=== PATIENT | female | born 1990 | race Caucasian/White ===

== ENCOUNTER → 2019-03-28 | Outpatient (CLI) | payer OTHER ==
[2019-03-28] VITALS (8 sets, daily range): BP systolic 130–148; BP diastolic 18–98
[~2019-03-28] VITALS: Ht 167.6 cm; Wt 124.7 kg
[~2019-03-28] MED LIST: PROZAC20 MG
--- NOTE | 2019-04-04 17:07 | PATH ---
[address] [address] PATHOLOGY RPT PROCEDURE Name: NICOLASA MCNAIR [id number] Admission: 03/28/19 Date of : 88 Discharge: Report #: [id number] Path Case #: [id number] [facility] Accession Number: [id number] . 01 Material submitted: . liver - LIVER . 01 Clinical history: . Elevated LFTs and ferritin . 02 Diagnosis: Liver biopsy: - Benign liver with mild lobular and portal inflammation, minimal (approximately 5%) macrovesicular steatosis and minimal/focal perisinusoidal fibrosis. See comment. . (HANG:justa; 03/29/2019) QMS/03/29/2019 . 02 Comment: The tissue cores show benign liver with mild lobular and portal inflammation composed predominantly of lymphocytes and rare neutrophils, without significant numbers of plasma cells, eosinophils or granulomas seen. Bile stasis is not apparent. Bile ducts are present and do not appear damaged. Properly controlled special stains performed on A1 show the following results: . Iron: No increase of stainable iron. Trichrome: Minimal/focal perisinusoidal fibrosis. Reticulin: Hepatic plates/framework intact. PAS with and without diastase: No PAS positive diastase resistant globules. . This case will be submitted to the [facility] Department of Hepatopathology in consultation and an addendum report will be issued. (HANG:justa; 03/29/2019) . 02 Addendum: . Special studies report received from [place] [address] [place] [address], on case [id number], labeled with their number [id number], dated 04/04/2019. . [facility] Pathology Consultation . Pathology Consult [place] [address] PATHOLOGY RPT PROCEDURE Name: NICOLASA MCNAIR Room: [facility]#: [id number] Admission: 03/28/19 Date of : 88 Discharge: Report #: [id number] Path Case #: [id number] . FINAL DIAGNOSIS Liver, needle biopsy ([id number]; 03/28/2019): Mild nonspecific reactive hepatitis with mild macrovesicular steatosis. (See comment.) . COMMENT This needle biopsy is adequate for assessment. The portal tracts show mild nonspecific inflammation predominantly composed of small lymphocytes. The interlobular bile ducts appear intact. The hepatic lobules show mild (15%) macrovesicular steatosis without unequivocal ballooning hepatocytes or [place] hyaline. There is mild lobular inflammation with occasional acidophil bodies. Special stains were provided. Iron stain is negative for iron deposition. Reticulin stain shows intact reticulin meshwork. PAS-D stain is negative for intracytoplasmic hyaline globules. Trichrome stain shows no significant fibrosis. . The patient is a 28-year-old woman with chronic elevation of liver enzymes. On 03/08/2019, the liver function test showed AST 147, ALT 256, and GGT 59. BARBARA and SMA were negative. Celiac panel was negative. Ferritin was elevated at 407. Serum yrgof-6-ceiexyvzpyv and ceruloplasmin were within normal limit. Serologies for HAV, HBV and HCV were negative. . In summary, the findings are mild and nonspecific. There is mild macrovesicular steatosis but no active steatohepatitis. There are no features that strongly suggest untreated autoimmune hepatitis or chronic biliary tract disease. The differential diagnosis includes adverse drug reaction, acute viral infection, or secondary to a systemic disease. Clinical correlation is necessary. . Thank you for the opportunity to be involved in this case. Your material is being returned. Please let us know of any pertinent follow-up. If you have any questions, please do not hesitate to reach me at [phone]. . Participated in the Interpretation Bakari Montiel M.D., Ph.D.-Pathology Fellow . . Report electronically signed by Ronnie Leggett M.D. [phone] I verify that I have examined all relevant slides/materials for the specimen(s) and rendered or confirmed the diagnosis. . A comprehensive review of records that included clinical notes and laboratory results was performed to assist in the diagnostic assessment of the case. . . [place] [address] PATHOLOGY RPT PROCEDURE Name: NICOLASA MCNAIR Room: [facility]#: [id number] Admission: 03/28/19 Date of : 88 Discharge: Report #: [id number] Path Case #: [id number] A. [id number]: Liver 8 stained slides . A complete copy of the report is on file. . Professional services performed by [address] [address]. Technical services performed by [facility] [place] [address], [address], [place] [address]. . (AMJ 04/04/2019) . AZJ/04/04/2019 Addendum Electronically Signed by Aj Young MD, Pathologist . 02 Electronically signed: . Aj Young MD, Pathologist NPI- [id number] . 01 Gross description: . The specimen is received in formalin, labeled "Nicolasa Mcnair liver BX", are two springer soft needle cores measuring 1.9 cm and 1.7 cm in length with an average 0.1 cm diameter. The specimen is entirely submitted in A1. (SWS; 03/28/2019) . . SHS/SHS . 02 Pathologist provided ICD-10: K74.0, K76.0 . 02 CPT . 307073 Specimen Comment: A courtesy copy of this report has been sent to Specimen Comment: [phone], , , . Specimen Comment: Report sent to ,DR LEUNG,DR DIEZ / DR VERDUZCO Specimen Comment: A duplicate report has been generated due to demographic updates. Performed at: [address], [place], [place] [id number] MD Jose Roberto Chapman MD Phone: [phone] Performed at: [address] [facility] [address], [place], [place] [id number] MD Aj Young MD Phone: [phone]
== END ==
LOC: M.LAB 07:00 → M.ULTRA 08:30
DX: K74.0 Hepatic fibrosis (principal); K76.0 Fatty (change of) liver, not elsewhere classified; K75.89 Other specified inflammatory liver diseases; Z90.49 Acquired absence of other specified parts of digestive tract; Z87.891 Personal history of nicotine dependence

== ENCOUNTER 2020-05-05 08:01 | Emergency (ER) | payer OTHER ==
[~2020-05-05] VITALS: Ht 170.2 cm; Wt 108.9 kg
[2020-05-05] MEDS ORDERED: MOBIC7.5 MG PO (08:14)
[2020-05-05] MEDS ORDERED: FAMCICLOVIR250 MG PO (08:15)
[2020-05-05 08:32] LABS: ABSOLUTE EOSINOPHILS 0.1 thou/uL (0.0-0.7); ABSOLUTE LYMPHOCYTES 1.7 thou/uL (0.8-5.3); ABSOLUTE MONOCYTES 0.5 thou/uL (0.0-1.2); ABSOLUTE NEUTROPHILS 4.8 thou/uL (1.6-8.1); BASOPHILS 0.6 %; EOSINOPHILS 0.7 %; HEMATOCRIT 43.2 % (37.0-47.0); HEMOGLOBIN 14.8 gm/dL (12.0-15.0); LYMPHOCYTES 24.3 %; MCH 29.7 pg (26.0-34.0); MCHC 34.2 g/dL (28.0-37.0); MCV 86.8 fL (80.0-100.0); MONOCYTES 6.6 %; MPV 8.1 fl. (7.2-11.1); NUCLEATED RBCS 0 /100WBC; PLATELET COUNT* 232 thou/uL (150-400); POLYS 67.8 %; RBC 4.97 mil/uL (4.20-5.00); RDW-CV 12.9 % (10.5-14.5); WBC 7.1 thou/uL (4.0-11.0)
[2020-05-05 08:44] LABS: APTT 26.5 Seconds (25.0-31.3); PROTIME 10.3 Seconds (9.20-11.50)
[2020-05-05 09:00] VITALS: BP 125/85
== END 2020-05-05 09:00 | disposition home or self-care (01) ==
LOC: M.ERS 08:01
PROVIDERS: Emergency Medicine Emergency Medical Services
DX: H11.31 Conjunctival hemorrhage, right eye (principal); Z90.49 Acquired absence of other specified parts of digestive tract

== ENCOUNTER 2020-05-30 13:44 | Emergency (ER) | payer OTHER ==
[~2020-05-30] VITALS: Ht 170.2 cm; Wt 122.5 kg
[~2020-05-30 13:44] MED LIST changes: +FAMCICLOVIR250 MG PO; +MOBIC7.5 MG PO
[2020-05-30 14:27] LABS: ABSOLUTE LYMPHOCYTES 2.2 thou/uL (0.8-5.3); ABSOLUTE MONOCYTES 0.4 thou/uL (0.0-1.2); ABSOLUTE NEUTROPHILS 5.8 thou/uL (1.6-8.1); BASOPHILS 0.5 %; EOSINOPHILS 0.4 %; HEMATOCRIT 44.9 % (37.0-47.0); HEMOGLOBIN 15.7 gm/dL (12.0-15.0); LYMPHOCYTES 26.1 %; MCH 29.6 pg (26.0-34.0); MCHC 34.9 g/dL (28.0-37.0); MCV 84.8 fL (80.0-100.0); MONOCYTES 5.2 %; MPV 8.4 fl. (7.2-11.1); NUCLEATED RBCS 0 /100WBC; PLATELET COUNT* 261 thou/uL (150-400); POLYS 67.8 %; RBC 5.29 mil/uL (4.20-5.00); RDW-CV 12.9 % (10.5-14.5); WBC 8.5 thou/uL (4.0-11.0)
[2020-05-30 14:30] LABS: CALCIUM 9.9 mg/dL (8.5-10.1); CREATININE 0.9 mg/dL (0.6-1.3)
[2020-05-30 14:35] LABS: ALBUMIN 4.5 g/dL (3.4-5.0); TOTAL BILIRUBIN 0.5 mg/dL (<0.1-1.0)
[2020-05-30] MEDS ORDERED: NORCO 5-325 TA1 EAC2 PO (16:35)
[2020-05-30] MEDS ORDERED: MEDROLDOSEPACK PO (16:35)
[2020-05-30 16:57] VITALS: BP 145/95
== END 2020-05-30 16:58 | disposition home or self-care (01) ==
LOC: M.ERS 13:44
PROVIDERS: Nurse Practitioner Family
DX: M48.07 Spinal stenosis, lumbosacral region (principal); M51.37 Other intervertebral disc degeneration, lumbosacral region; R94.5 Abnormal results of liver function studies; F12.90 Cannabis use, unspecified, uncomplicated; Z79.899 Other long term (current) drug therapy; Z90.49 Acquired absence of other specified parts of digestive tract

== ENCOUNTER 2021-05-03 11:07 | Emergency (ER) | payer OTHER ==
[~2021-05-03] VITALS: Ht 167.6 cm; Wt 99.8 kg
[~2021-05-03 11:07] MED LIST changes: +MEDROLDOSEPACK PO; +NORCO 5-325 TA1 EAC2 PO
[2021-05-03 11:54] LABS: ABSOLUTE LYMPHOCYTES 1.1 thou/uL (0.8-5.3); ABSOLUTE MONOCYTES 0.5 thou/uL (0.0-1.2); ABSOLUTE NEUTROPHILS 7.5 thou/uL (1.6-8.1); BASOPHILS 0.5 %; EOSINOPHILS 0.3 %; HEMOGLOBIN 14.4 gm/dL (12.0-15.0); LYMPHOCYTES 12.3 %; MCH 30.1 pg (26.0-34.0); MCHC 35.1 g/dL (28.0-37.0); MCV 85.7 fL (80.0-100.0); MONOCYTES 4.9 %; MPV 7.8 fl. (7.2-11.1); NUCLEATED RBCS 0 /100WBC; PLATELET COUNT* 200 thou/uL (150-400); RBC 4.78 mil/uL (4.20-5.00); RDW-CV 12.7 % (10.5-14.5); WBC 9.1 thou/uL (4.0-11.0)
[2021-05-03 11:59] LABS: CALCIUM 9.8 mg/dL (8.5-10.1); CREATININE 0.7 mg/dL (0.6-1.3); POTASSIUM 3.7 mmol/L (3.5-5.1)
[2021-05-03 12:04] LABS: ALBUMIN 4.3 g/dL (3.4-5.0); TOTAL BILIRUBIN 0.5 mg/dL (<0.1-1.0); TOTAL PROTEIN 8.3 g/dL (6.4-8.2)
[2021-05-03 12:54] LABS: URINE BILIRUBIN NEGATIVE (Negative); URINE BLOOD NEGATIVE (Negative); URINE CLARITY CLEAR; URINE COLOR YELLOW; URINE GLUCOSE-RANDOM NEGATIVE (Negative); URINE KETONES NEGATIVE (Negative); URINE LEUKOCYTES-REFLEX NEGATIVE (Negative); URINE NITRITE-REFLEX NEGATIVE (Negative); URINE PROTEIN NEGATIVE (Negative); URINE UROBILINOGEN 0.2 E.U./dl (0.2-1.0)
[2021-05-03 13:03] LABS: AMP/METHAMP Negative (Negative); BARBITURATES Negative (Negative); BENZODIAZEPINES Negative (Negative); COCAINE Negative (Negative); METHADONE Negative (Negative); OPIATES Negative (Negative); PCP Negative (Negative); THC POSITIVE (Negative)
[2021-05-03] MEDS ORDERED: VISTARIL 25 MG25 M1 PO (13:07)
[2021-05-03 13:20] VITALS: BP 129/93
--- NOTE | 2021-05-04 11:27 | EKG ---
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
== END 2021-05-03 13:21 | disposition home or self-care (01) ==
LOC: M.ERS 11:07
PROVIDERS: Physician Assistant
DX: J06.9 Acute upper respiratory infection, unspecified (principal); Z20.822 Contact with and (suspected) exposure to COVID-19; F41.9 Anxiety disorder, unspecified; Z88.5 Allergy status to narcotic agent; Z90.49 Acquired absence of other specified parts of digestive tract; Z79.899 Other long term (current) drug therapy